=== PATIENT | male | born 1990 | race Caucasian/White ===

== ENCOUNTER 2016-11-16 15:14 | Emergency (ER) | payer MEDICAID, OTHER ==
--- NOTE | 2016-11-16 15:58 | UC ---
Throat Pain/Nasal Fredy HPI - HPI Summary HPI Summary: 26 male presents with complaints of throat pain and nasal/sinus congestion that began last night and worsened this morning around 430am. Patient states he feels like his glands are swollen and he cant breath out of his nose due to the mucus build up. States he woke up at 430am coughing up green mucus. Admits to intermittent cough, sometimes productive. Admits to chills. Denies nausea/ vomiting, difficulty breathing, chest pain or SOB. No other complaints. No ear pain or eye complaints. No PMHx. Has not taken any medications. Admits to seasonal allergies however states they have not been bothering him, no sneezing or itchy eyes etc. - History of Current Complaint Chief Complaint: UCGeneralIllness Stated Complaint: SINUS Time Seen by Provider: 11/16/16 15:30 Hx Obtained From: Patient Onset/Duration: Sudden Onset, Lasting Days, Still Present, Worse Since Severity: Moderate Pain Intensity: 5 Pain Scale Used: 0-10 Numeric Cough: Productive Associated Signs & Symptoms: Positive: Dysphagia, Sinus Discomfort, Nasal Discharge Related History: Seasonal Allergies - Epiglottits Risk Factors Epiglottis Risk Factors: Negative - Allergies/Home Medications Allergies/Adverse Reactions: Allergies Allergy/AdvReac Type Severity Reaction Status Date / Time Morphine Allergy Swelling Verified 11/16/16 15:43 seasonal allergies Allergy Sneezing Uncoded 11/16/16 15:43 PMH/Surg Hx/FS Hx/Imm Hx - Additional Past Medical History Additional PMH: negative PMHx Other Endocrine History: no DM Other Cardiovascular History: no hypertension - Surgical History Surgical History: None - Family History Known Family History: Positive: None - Social History Alcohol Use: Occasionally Substance Use Type: None Smoking Status (MU): Heavy Every Day Tobacco Smoker Amount Used/How Often: 6-7 cigs per day - Immunization History Vaccination Up to Date: Yes Review of Systems Constitutional: Chills, Fatigue Skin: Negative Eyes: Negative ENT: Sore Throat, Nasal Discharge, Sinus Congestion, Sinus Pain/Tenderness Respiratory: Negative Cardiovascular: Negative Gastrointestinal: Negative Musculoskeletal: Negative Neurological: Negative, Headache All Other Systems Reviewed And Are Negative: Yes Physical Exam Triage Information Reviewed: Yes Appearance: Well-Appearing - sounds very congested, No Pain Distress, Well- Nourished Vital Signs: Initial Vital Signs Temp 97.6 F 11/16/16 15:39 Pulse 82 11/16/16 15:39 Resp 14 11/16/16 15:39 BP 148/100 11/16/16 15:39 Pulse Ox 98 11/16/16 15:39 BP retaken and 143/83, recommend follow up with PCP for re-check. Eyes: Positive: Conjunctiva Clear ENT: Positive: Hearing grossly normal, Pharyngeal erythema, Nasal congestion, Nasal drainage, TMs normal, Tonsillar swelling - minimally, Other: - patent airway. Negative: Tonsillar exudate, Trismus, Muffled/hoarse voice Dental: Positive: Percussion Tenderness @ - maxillary b/l, Cervical Lymphadenopathy - b/l cervical Neck: Positive: Supple, Nontender Respiratory: Positive: Chest non-tender, Lungs clear, Normal breath sounds, No respiratory distress, No accessory muscle use. Negative: Decreased breath sounds, Rhonchi, Stridor, Wheezing Cardiovascular: Positive: RRR, No Murmur, Pulses Normal, Brisk Capillary Refill Abdomen Description: Positive: Nontender, No Organomegaly, Soft Bowel Sounds: Positive: Present Musculoskeletal: Positive: Strength Intact, ROM Intact Neurological: Positive: Alert, Muscle Tone Normal Psychological: Positive: Normal Response To Family Skin Exam: Normal Throat Pain/Nasal Course/Dx - Course Course Of Treatment: strep obtained and negative. appears to be suffering from sinisuits/pharyngitis due to HPI and PE findings. will treat with antibiotic, flonase and symptomatic measures including saline rinse, flonase and claritin. Aware of worsening signs and symptoms. fluids, humidified air, rest. follow up pcp. - Differential Dx/Diagnosis Differential Diagnosis/HQI/PQRI: Mononucleosis, Otitis Media, Pharyngitis, Sinusitis, Tonsillitis, URI Provider Diagnoses: acute sinusitis, phayrngitis Discharge - Discharge Plan Condition: Stable Disposition: HOME Prescriptions: Amoxicillin/Clavulanate TAB* [Augmentin TAB 875*] 875 mg PO BID #20 tab Fluticasone NASAL SPRAY 50MCG* [Flonase NASAL SPRAY 50MCG*] 2 spray BOTH NARES DAILY #1 btl Patient Education Materials: Sinusitis (ED), Pharyngitis (ED) Referrals: [facility] [place] [facility] [Outside] Additional Instructions: Take prescribed medication as directed until entire dose is finished. Use prescribed nasal spray for congestion. Recommend also using saline nasal spray sold OTC to help moisturize and clean nares. Also recommend taking Claritin OTC for seasonal allergies and congestion. Drink plenty of fluids and get plenty of rest. Hot showers, warm compresses over nose/cheeks. Follow up with PCP. And re-check BP.
[2016-11-16 16:03] VITALS: BP 143/83
== END 2016-11-16 16:03 | disposition home or self-care (01) ==
LOC: UCCORT 15:14
DX: J02.9 Acute pharyngitis, unspecified (principal); J01.90 Acute sinusitis, unspecified; F17.210 Nicotine dependence, cigarettes, uncomplicated; Z88.6 Allergy status to analgesic agent
CPT/HCPCS: 87651; 99202; G0463

== ENCOUNTER 2017-04-20 12:14 | Emergency (ER) | payer MEDICAID | END 2017-04-20 14:23 | disposition left against medical advice (07) | LOC: UCCORT 12:14 | DX: R05 Cough (principal); Z53.21 Procedure and treatment not carried out due to patient leaving prior to being seen by health care provider ==

== ENCOUNTER 2019-02-27 15:28 | Emergency (ER) | payer MEDICAID, OTHER ==
[2019-02-27 16:09] VITALS: BP 145/81
--- NOTE | 2019-02-27 16:27 | ED ---
Back Pain - HPI Summary HPI Summary: 28 yr old male with mid thoracic spine pain, and pain on both lateral lower ribs. Onset this morning. He states he carried his three year old upstairs and then he felt this. His pain is moderate, and worse with turning side to side. No SOB, no pleuritic pain. He has pain on both lateral rib areas. No prior symptoms like this. The patient has not fallen or been in any accidents. His pain is moderate. - History of Current Complaint Chief Complaint: UCChestPain Stated Complaint: RT SIDE RIB PAIN Time Seen by Provider: 02/27/19 16:00 Pain Intensity: 7 - Allergies/Home Medications Allergies/Adverse Reactions: Allergies Allergy/AdvReac Type Severity Reaction Status Date / Time morphine Allergy Swelling Verified 02/27/19 15:58 seasonal allergies Allergy Sneezing Uncoded 02/27/19 15:58 Home Medications: Home Medications Famotidine TAB* [Pepcid 20 MG TAB*] 20 mg PO DAILY PRN 02/27/19 [History Confirmed 02/27/19] PMH/Surg Hx/FS Hx/Imm Hx Infectious Disease History: No Infectious Disease History: Denies: Traveled Outside the [place] in Last 30 Days - Family History Known Family History: Positive: None - Social History Occupation: Employed Full-time Alcohol Use: Occasionally Alcohol Amount: 12 pack 3pm- midnight Substance Use Type: Reports: None Smoking Status (MU): Light Every Day Tobacco Smoker Amount Used/How Often: 6-7 cigs per day Length of Time of Smoking/Using Tobacco: 14 yrs Have You Smoked in the Last Year: Yes Review of Systems Constitutional: Negative Positive: Other - pain in t spine and bilateral lower ribs. Skin: Negative Negative: Rash All Other Systems Reviewed And Are Negative: Yes Physical Exam Triage Information Reviewed: Yes Vital Signs On Initial Exam: Initial Vitals Temp Pulse Resp BP Pulse Ox 98.5 F 80 16 145/81 100 02/27/19 16:00 02/27/19 16:00 02/27/19 16:00 02/27/19 16:00 02/27/19 16:00 Vital Signs Reviewed: Yes Appearance: Positive: Well-Appearing, No Pain Distress Skin: Positive: Warm, Skin Color Reflects Adequate Perfusion Head/Face: Positive: Normal Head/Face Inspection Eyes: Positive: EOMI ENT: Positive: Normal ENT inspection Neck: Positive: Nontender Respiratory/Lung Sounds: Positive: Clear to Auscultation, Breath Sounds Present , Other - tender over bilateral ribs laterally, no bruise, no rash, no STS. Cardiovascular: Positive: RRR. Negative: Murmur Abdomen Description: Positive: Nontender. Negative: Distended Musculoskeletal: Positive: Other - tender in the midline T spine about leval T-8 , no step off, no deformity. ROM on moving back limited due to pain in back, and the bilateral rib areas. Neurological: Positive: Sensory/Motor Intact, Alert, Oriented to Person Place, Time, CN Intact II-III Psychiatric: Positive: Normal Diagnostics - Vital Signs Vital Signs Temp Pulse Resp BP Pulse Ox 02/27/19 16:00 98.5 F 80 16 145/81 100 - Laboratory Lab Statement: Any lab studies that have been ordered have been reviewed, and results considered in the medical decision making process. - Radiology chest, t spine Radiology Interpretation Completed By: Radiologist - nad Back Pain Course/Dx - Course Course Of Treatment: 28 yr old with thoracic strain and radiation into both lateral ribs. Plan DC home on motrin. flexeril scrip. - Diagnoses Provider Diagnoses: Strain of thoracic region, Chest wall muscle strain, Hypertension Discharge ED - Sign-Out/Discharge Documenting (check all that apply): Patient Departure All imaging exams completed and their final reports reviewed: Yes - Discharge Plan Condition: Good Disposition: HOME Prescriptions: Ibuprofen TAB* [Motrin TAB* 600 MG] 600 mg PO Q6H PRN #20 tab PRN Reason: Pain - Mild Patient Education Materials: Hypertension (ED), Thoracic Pain (ED), Chest Wall Pain (ED) Referrals: No Primary Care Phys,NOPCP [Primary Care Provider] - [facility] – [place] [facility] [Outside] - 3 Days - Billing Disposition and Condition Condition: GOOD Disposition: Home
== END 2019-02-27 17:38 | disposition home or self-care (01) ==
LOC: UCCORT 15:28
DX: S29.011A Strain of muscle and tendon of front wall of thorax, initial encounter (principal); S29.012A Strain of muscle and tendon of back wall of thorax, initial encounter; F17.210 Nicotine dependence, cigarettes, uncomplicated; Z91.09 Other allergy status, other than to drugs and biological substances; Z88.5 Allergy status to narcotic agent; X58.XXXA Exposure to other specified factors, initial encounter; Y92.9 Unspecified place or not applicable
CPT/HCPCS: 71046; 72070; 99212; G0463